=== PATIENT | female | born 1980 | race Caucasian/White ===

== ENCOUNTER → 2020-03-05 | Emergency (ER) | payer OTHER ==
[~2020-03-05] VITALS: Ht 149.9 cm; Wt 40.8 kg
[~2020-03-05] MED LIST: CELEXA40 MG PO; CLONAZEPAM1 MG PO; SYNTHROID100 MCG PO; WELLBUTRIN XL300 MG PO
== END | disposition left against medical advice (07) ==
LOC: ER 12:51
DX: R10.31 Right lower quadrant pain (principal); R10.32 Left lower quadrant pain